=== PATIENT | male | born 1975 | race African-American/Black ===

== ENCOUNTER 2023-09-07 11:41 | Emergency (ER) | payer OTHER ==
[2023-09-07 11:59] VITALS: PULSE 87; RESP 18
[2023-09-07] MEDS ORDERED: LIDOCAINE 2% GLYDO JELLY 11 ML APPL PO ONE (12:35)
[2023-09-07] MEDS ORDERED: IBUPROFEN 800 MG TAB PO STA (12:55)
--- NOTE | 2023-09-07 12:55 | ED ---
General Adult HPI - General Chief complaint: Dental/Oral Stated complaint: Neck pain Time Seen by Provider: 09/07/23 12:00 Source: patient, RN notes reviewed Mode of arrival: ambulatory Limitations: no limitations - History of Present Illness Initial comments: 47-year-old -[place] male with no significant past medical history presents the emergency department with a chief complaint of dental pain. Patient reports that he's had right lower mouth/dental pain for the last 6 days. He denies any trauma or injury. She reports that there is a small cut to his right lower palate. Denies any fevers or difficulty breathing or drooling. Denies history of diabetes. Patient does report that he smokes tobacco products - Related Data Previous Rx's Medication Instructions Recorded Amoxic-Pot Clav 875-125Mg 1 tab PO Q12HR #20 tab 09/07/23 [Augmentin 875-125] Ibuprofen [Motrin] 800 mg PO Q6HR #30 tab 09/07/23 Allergies Allergy/AdvReac Type Severity Reaction Status Date / Time No Known Allergies Allergy Verified 09/07/23 11:58 Review of Systems ROS Statement: Those systems with pertinent positive or pertinent negative responses have been documented in the HPI. ROS Other: All systems not noted in ROS Statement are negative. Past Medical History Past Medical History: Asthma History of Any Multi-Drug Resistant Organisms: None Reported Past Surgical History: No Surgical Hx Reported Past Psychological History: No Psychological Hx Reported Smoking Status: Current every day smoker Past Alcohol Use History: None Reported Past Drug Use History: None Reported General Exam - General Exam Comments Initial Comments: General: Alert, in no acute distress Head: atraumatic normocephalic. Eyes PERRL, EOMI intact, mucous membranes moist, 0.5 cm laceration to right lower palate. No active bleeding. Nontender. Respiratory: Lungs clear to auscultation bilaterally Cardiovascular: heart rate regular rate and rhythm Abdominal: Soft without guarding or rebound Extremities: Normal inspection with full range of motion and normal capillary refill Neuroogic: alert and oriented 3, CN II-XII intact, able to ambulate with steady gait Skin: warm dry and intact with normal color Limitations: no limitations Course Vital Signs 09/07/23 09/07/23 11:55 13:45 Temperature 98.2 F 99.1 F Pulse Rate 87 87 Respiratory 18 18 Rate Blood Pressure 137/90 143/98 O2 Sat by Pulse 99 99 Oximetry Medical Decision Making - Medical Decision Making Was pt. sent in by a medical professional or institution (JONATHNA Thomas, CONTRACT ASSOCIATE, urgent care, hospital, or half-way...) When possible be specific @ -[No] Did you speak to anyone other than the patient for history (EMS, parent, family, police, friend...)? What history was obtained from this source @ -[No] Did you review nursing and triage notes (agree or disagree)? Why? @ -[I reviewed and agree with nursing and triage notes] Were old charts reviewed (outside hosp., previous admission, EMS record, old EKG, old radiological studies, urgent care reports/EKG's, half-way records)? Report findings @ -[No old charts were reviewed] Differential Diagnosis (chest pain, altered mental status, abdominal pain women, abdominal pain men, vaginal bleeding, weakness, fever, dyspnea, syncope, headache, dizziness, GI bleed, back pain, seizure, CVA, palpatations, mental health, musculoskeletal)? @ -[not applicable] EKG interpreted by me (3pts min.). @ -[As above] X-rays interpreted by me (1pt min.). @ -[None done] CT interpreted by me (1pt min.). @ -[None done] U/S interpreted by me (1pt. min.). @ -[None done] What testing was considered but not performed or refused? (CT, X-rays, U/S, labs)? Why? @ -[None] What meds were considered but not given or refused? Why? @ -[None] Did you discuss the management of the patient with other professionals (professionals i.e. JONATHAN Thomas, CONTRACT ASSOCIATE, lab, RT, psych nurse, director social service, assistant professor of psychology, teacher, production officer, complex case manager)? Give summary @ -[No] Was smoking cessation discussed for >3mins.? @ -[No] Was critical care preformed (if so, how long)? @ -[No] Were there social determinants of health that impacted care today? How? (Homelessness, low income, unemployed, alcoholism, drug addiction, transportation, low edu. Level, literacy, decrease access to med. care, [facility], rehab)? @ -[No] Was there de-escalation of care discussed even if they declined (Discuss DNR or withdrawal of care, Hospice)? DNR status @ -[No] What co-morbidities impacted this encounter? (DM, HTN, Smoking, COPD, CAD, Cancer, CVA, ARF, Chemo, Hep., AIDS, mental health diagnosis, sleep apnea, morbi d obesity)? @ -[None] Was patient admitted / discharged? Hospital course, mention meds given and route, prescriptions, significant lab abnormalities, going to OR and other pertinent info. @ -Discharged. This is a 47-year-old -[place] male who presents to the emergency department with a chief complaint of dental pain. Patient has a laceration to the right lower palate. No active bleeding. Patient will be given viscous lidocaine and Augmentin. Educated on the importance of dentist and ENT follow-up. Return precautions discussed at length. Patient discharged in stable condition. Case discussed with Dr. Berger [facility] who agrees with plan of care Undiagnosed new problem with uncertain prognosis? @ -[No] Drug Therapy requiring intensive monitoring for toxicity (Heparin, Nitro, Insulin, Cardizem)? @ -[No] Were any procedures done? @ -[No] Diagnosis/symptom? @ -Dental Pain Acute, or Chronic, or Acute on Chronic? @ -Acute Uncomplicated (without systemic symptoms) or Complicated (systemic symptoms)? @ -Uncomplicated Side effects of treatment? @ -[No] Exacerbation, Progression, or Severe Exacerbation? @ -[No] Poses a threat to life or bodily function? How? (Chest pain, [place], [place], pneumonia, PE, COPD, DKA, ARF, appy, cholecystitis, CVA, Diverticulitis, Homicidal, Suicidal, threat to staff... and all critical care pts) @ -Low likelihood Disposition Clinical Impression: Laceration of mouth Disposition: HOME SELF-CARE Condition: Stable Additional Instructions: PLease follow up with ENT Please take Antibiotic as prescribed Please return if fever or worsening pain develops Prescriptions: Amoxic-Pot Clav 875-125Mg [Augmentin 875-125] 1 tab PO Q12HR #20 tab Ibuprofen [Motrin] 800 mg PO Q6HR #30 tab Is patient prescribed a controlled substance at d/c from ED?: No Referrals: None,Stated [Primary Care Provider] - 1-2 days Bk Parsons MD [STAFF PHYSICIAN] - 1-2 days Forms: Area PCPs Time of Disposition: 12:54
[2023-09-07 14:07] VITALS: BP 143/98; TEMP 99.1
== END 2023-09-07 13:50 | disposition home or self-care (01) ==
LOC: EC 11:41
DX: S01.511A Laceration without foreign body of lip, initial encounter (principal); J45.909 Unspecified asthma, uncomplicated; F17.200 Nicotine dependence, unspecified, uncomplicated; W45.8XXA Other foreign body or object entering through skin, initial encounter
CPT/HCPCS: 12011; 99282